=== PATIENT | male | born 1990 | race Caucasian/White ===

== ENCOUNTER 2017-05-09 18:24 | Emergency (ER) | payer MEDICAID ==
[~2017-05-09] VITALS: Ht 182.9 cm; Wt 107.0 kg
[~2017-05-09 18:24] MED LIST: ALBU6.7H INH; GUAI10SY2 PO; HYDR-3965 PO; HYDR-569 PO; IBUP-1986 PO; NAPR-232 PO; NAPR-56 PO; PENI500T2 PO
[2017-05-09] MEDS ORDERED: TETanus/Pertussis (Acell)/Diphther VAC/PF (Tdap-Adult) 0.5ml syringe IM ONE (19:40)
[2017-05-09] MEDS ORDERED: BUPIVAcaine 0.5% inj/PF 30 ml vial IJ ONE (19:40)
[2017-05-09] MEDS ORDERED: LORazepam 1 MG tablet PO ONE (20:20)
[2017-05-09] MEDS ORDERED: CEPH250T PO (20:44)
[2017-05-09 20:56] VITALS: BP 157/116
== END 2017-05-09 21:32 | disposition home or self-care (01) ==
LOC: ER 18:25
DX: S90.821A Blister (nonthermal), right foot, initial encounter (principal); S90.822A Blister (nonthermal), left foot, initial encounter; G89.29 Other chronic pain; Z60.2 Problems related to living alone; Z88.2 Allergy status to sulfonamides; Z79.899 Other long term (current) drug therapy; X58.XXXA Exposure to other specified factors, initial encounter; Y93.89 Activity, other specified; Y92.89 Other specified places as the place of occurrence of the external cause; Y99.8 Other external cause status
CPT/HCPCS: 10060; 90471; 90715; 99283; A6222; A6257; A6258; A6449; J3490

== ENCOUNTER 2018-05-03 20:01 | Emergency (ER) | payer MEDICAID ==
[~2018-05-03] VITALS: Ht 182.9 cm; Wt 82.3 kg
[~2018-05-03 20:01] MED LIST changes: +CEPH250T PO; +HYDR-4383 PO; -HYDR-569 PO
[2018-05-03 20:06] VITALS: BP 178/84
[2018-05-03] MEDS ORDERED: acetaminophen 325mg tablet PO ONE (20:50)
[2018-05-03] MEDS ORDERED: ibuprofen tablet 400 MG TABLET PO ONE (20:50)
== END 2018-05-03 21:03 | disposition home or self-care (01) ==
LOC: ER 20:02
DX: S50.311A Abrasion of right elbow, initial encounter (principal); M79.674 Pain in right toe(s); G89.29 Other chronic pain; Z88.2 Allergy status to sulfonamides; Z79.899 Other long term (current) drug therapy; W10.1XXA Fall (on)(from) sidewalk curb, initial encounter; Y93.89 Activity, other specified; Y92.89 Other specified places as the place of occurrence of the external cause; Y99.8 Other external cause status
CPT/HCPCS: 73080; 73660; 99283

== ENCOUNTER 2018-06-21 12:33 | Emergency (ER) | payer MEDICAID ==
[~2018-06-21] VITALS: Ht 182.9 cm; Wt 87.0 kg
[~2018-06-21 12:33] MED LIST changes: -CEPH250T PO
[2018-06-21 12:43] VITALS: BP 142/89
[2018-06-21] MEDS ORDERED: AMOX-100 PO (13:39)
== END 2018-06-21 13:46 | disposition home or self-care (01) ==
LOC: ER 12:34
DX: K04.7 Periapical abscess without sinus (principal); G89.29 Other chronic pain; M54.9 Dorsalgia, unspecified; Z88.2 Allergy status to sulfonamides
CPT/HCPCS: 99283

== ENCOUNTER 2018-08-22 12:35 | Emergency (ER) | payer MEDICAID ==
[~2018-08-22] VITALS: Ht 167.6 cm; Wt 80.0 kg
[2018-08-22] MEDS ORDERED: IBUP-1985 PO (12:58)
[2018-08-22] MEDS ORDERED: PENI500T2 PO (12:58)
[2018-08-22] MEDS ORDERED: HYDROcodone/acetaminophen 10/325mg tab PO ONE (13:00)
[2018-08-22 13:02] VITALS: BP 138/98
[2018-08-22] MEDS ORDERED: penicillin V potassium 500mg tablet PO ONE (13:25)
== END 2018-08-22 13:53 | disposition home or self-care (01) ==
LOC: ER 12:35
DX: S02.5XXA Fracture of tooth (traumatic), initial encounter for closed fracture (principal); G89.29 Other chronic pain; M54.9 Dorsalgia, unspecified; Z88.2 Allergy status to sulfonamides; X58.XXXA Exposure to other specified factors, initial encounter; Y93.89 Activity, other specified; Y92.89 Other specified places as the place of occurrence of the external cause; Y99.8 Other external cause status
CPT/HCPCS: 99283